=== PATIENT | female | born 1985 | race Caucasian/White ===

== ENCOUNTER 2019-07-22 12:05 | Emergency (ER) | payer OTHER ==
[~2019-07-22] VITALS: Ht 157.5 cm; Wt 79.4 kg
[~2019-07-22 12:05] MED LIST: ACYC400 PO; AMIT10; AMIT10 PO; Ativan0.5 MG PO; BENADRYL25 MG PO; Bactrim 400-801 EACH PO; Benztropine Mesy1 MG; CLON.1 PO; CLON.2 PO; CLON1 PO; Catapres0.1 MG PO; DIPH25 PO; ESOM20 PO; FAMO20 PO; Kristalose20 GM PO; LORA1 PO; MIRT15 PO; NAPR220 PO; OLAN5 PO; PARO20 PO; PARO30 PO; PAXIL40 MG PO; PRED20 PO; Paxil40 MG PO; Pepcid20 MG PO; Prednisone50 MG PO; Prozac40 MG PO; QUET100 PO; QUET200 PO; QUET300 PO; QUETIAPINE FUMA50 MG PO; RXTRAM50 PO; SULTRIDS PO; Seroquel Xr300 MG PO; TRAM50 PO
[2019-07-22] MEDS ORDERED: QUET300 PO (12:33)
[2019-07-22] MEDS ORDERED: PARO30 PO (12:33)
[2019-07-22] MEDS ORDERED: CLON.2 PO (12:43)
== END 2019-07-22 12:38 | disposition home or self-care (01) ==
LOC: ER 12:05
DX: F31.9 Bipolar disorder, unspecified (principal); Z76.0 Encounter for issue of repeat prescription; F41.0 Panic disorder [episodic paroxysmal anxiety]; Z79.899 Other long term (current) drug therapy; Z87.891 Personal history of nicotine dependence
CPT/HCPCS: 99281

== ENCOUNTER 2020-04-20 17:53 | Emergency (ER) | payer MEDICARE, OTHER ==
[~2020-04-20] VITALS: Ht 157.5 cm; Wt 83.9 kg
[2020-04-20 18:56] LABS: BASOPHILS ABSOLUTE AUTO 0.05 K/mm3 (0.00-0.23); BASOPHILS PERCENT AUTO 1 % (0-2); EOSINOPHILS ABSOLUTE AUTO 0.34 K/mm3 (0.00-0.68); EOSINOPHILS PERCENT AUTO 4 % (0-6); Hematocrit 39.8 % (33.0-51.0); Hemoglobin 13.5 g/dL (11.5-16.0); IMMATURE GRAN ABSOLUTE AUTO 0.01 K/mm3 (0.00-0.10); IMMATURE GRAN PERCENT AUTO 0 % (0-1); LYMPHOCYTES ABSOLUTE AUTO 2.44 K/mm3 (0.84-5.20); LYMPHOCYTES PERCENT AUTO 30 % (21-46); MONOCYTES ABSOLUTE AUTO 0.72 K/mm3 (0.16-1.47); MONOCYTES PERCENT AUTO 9 % (4-13); Mean Corpuscular HGB Conc 33.9 g/dL (31.5-36.5); Mean Corpuscular Volume 88 fL (80-100); Mean Platelet Volume 9.4 fL (9.1-12.4); NEUTROPHILS ABSOLUTE AUTO 4.72 K/mm3 (1.96-9.15); NEUTROPHILS PERCENT AUTO 57 % (41-73); Platelet Count 362 K/mm3 (150-400); RDW Coefficient Variation 13.3 % (11.7-14.2); RDW Standard Deviation 43.3 fL (35.1-46.3); White Blood Cell Count 8.28 K/mm3 (4.00-11.30)
[2020-04-20 19:10] LABS: International Normalized Ratio 0.91; Prothrombin Time Results 9.8 Sec (9.7-11.5)
[2020-04-20 19:18] LABS: Ethanol (Alcohol), Blood, Med <3 mg/dL; Salicylate <1.7 mg/dL (2.8-20.0)
[2020-04-20 19:28] LABS: Alanine Aminotransfer (ALT/SGP 27 U/L (12-78); Albumin, Blood 3.7 g/dL (3.4-5.0); Albumin/Globulin Ratio 0.9 (0.8-1.8); Alk Phos 73 U/L (50-136); Anion Gap 6 mmol/L (6-16); Aspartate Aminotrans (AST/SGOT 16 U/L (12-37); Bilirubin, Total 0.6 mg/dL (0.1-1.0); Blood Urea Nitrogen 12 mg/dL (8-24); Bun/Creatinine Ratio 19.9 (12.0-20.0); CO2, Blood 25 mmol/L (21-32); Calcium, Blood 9.3 mg/dL (8.5-10.1); Chloride, Blood 105 mmol/L (98-108); Globulin, Blood 4.2 g/dL (2.2-4.0); Glomerular Filtration Rate >60 (60-); Glucose, Blood 119 mg/dL (70-99); Potassium, Blood 3.5 mmol/L (3.5-5.5); Sodium, Blood 136 mmol/L (136-145); Total Protein, Blood 7.9 g/dL (6.4-8.2)
[2020-04-20 22:55] LABS: Bilirubin, Direct <0.1 mg/dL (0.0-0.3); Bilirubin, Indirect Unable to Calculate mg/dL (0.1-0.7)
== END 2020-04-20 22:28 | disposition left against medical advice (07) ==
LOC: ER 17:53
PROVIDERS: Student in an Organized Health Care Education/Training Program
DX: T39.1X1A Poisoning by 4-Aminophenol derivatives, accidental (unintentional), initial encounter (principal); T78.40XA Allergy, unspecified, initial encounter
CPT/HCPCS: 36415; 80053; 82248; 85025; 85610; 99283; A9270; G0480; J7512

== ENCOUNTER 2020-04-21 12:38 | Emergency (ER) | payer MEDICARE, OTHER ==
[~2020-04-21] VITALS: Ht 157.5 cm; Wt 81.7 kg
[2020-04-21 13:12] LABS: BASOPHILS ABSOLUTE AUTO 0.04 K/mm3 (0.00-0.23); BASOPHILS PERCENT AUTO 0 % (0-2); EOSINOPHILS ABSOLUTE AUTO 0.17 K/mm3 (0.00-0.68); EOSINOPHILS PERCENT AUTO 1 % (0-6); Hematocrit 36.3 % (33.0-51.0); Hemoglobin 12.6 g/dL (11.5-16.0); IMMATURE GRAN ABSOLUTE AUTO 0.05 K/mm3 (0.00-0.10); IMMATURE GRAN PERCENT AUTO 0 % (0-1); LYMPHOCYTES ABSOLUTE AUTO 3.11 K/mm3 (0.84-5.20); LYMPHOCYTES PERCENT AUTO 21 % (21-46); MONOCYTES ABSOLUTE AUTO 1.37 K/mm3 (0.16-1.47); MONOCYTES PERCENT AUTO 9 % (4-13); Mean Corpuscular HGB 30.2 pg (26.0-34.0); Mean Corpuscular HGB Conc 34.7 g/dL (31.5-36.5); Mean Corpuscular Volume 87 fL (80-100); Mean Platelet Volume 9.2 fL (9.1-12.4); NEUTROPHILS ABSOLUTE AUTO 10.41 K/mm3 (1.96-9.15); NEUTROPHILS PERCENT AUTO 69 % (41-73); Platelet Count 366 K/mm3 (150-400); RDW Coefficient Variation 13.5 % (11.7-14.2); RDW Standard Deviation 42.1 fL (35.1-46.3); Red Blood Cell Count 4.17 M/mm3 (3.80-5.20); White Blood Cell Count 15.15 K/mm3 (4.00-11.30)
[2020-04-21 13:27] LABS: Alanine Aminotransfer (ALT/SGP 27 U/L (12-78); Albumin, Blood 3.5 g/dL (3.4-5.0); Albumin/Globulin Ratio 0.8 (0.8-1.8); Alk Phos 66 U/L (50-136); Anion Gap 6 mmol/L (6-16); Aspartate Aminotrans (AST/SGOT 16 U/L (12-37); Bilirubin, Total 0.6 mg/dL (0.1-1.0); Blood Urea Nitrogen 8 mg/dL (8-24); Bun/Creatinine Ratio 16.3 (12.0-20.0); CO2, Blood 27 mmol/L (21-32); Calcium, Blood 8.9 mg/dL (8.5-10.1); Chloride, Blood 104 mmol/L (98-108); Creatinine, Blood 0.49 mg/dL (0.40-1.00); Globulin, Blood 4.2 g/dL (2.2-4.0); Glomerular Filtration Rate >60 (60-); Glucose, Blood 90 mg/dL (70-99); Potassium, Blood 3.9 mmol/L (3.5-5.5); Sodium, Blood 137 mmol/L (136-145); Total Protein, Blood 7.7 g/dL (6.4-8.2)
[2020-04-21 13:28] LABS: Acetaminophen, Random <2.0 ug/mL (10.0-30.0); International Normalized Ratio 0.94; Prothrombin Time Results 10.1 Sec (9.7-11.5)
== END 2020-04-21 14:25 | disposition home or self-care (01) ==
LOC: ER 12:38
PROVIDERS: Physician Assistant
DX: L23.9 Allergic contact dermatitis, unspecified cause (principal); K21.9 Gastro-esophageal reflux disease without esophagitis; Z88.0 Allergy status to penicillin; Z79.899 Other long term (current) drug therapy
CPT/HCPCS: 36415; 80053; 85025; 85610; 85730; 99284; A9270; G0480

== ENCOUNTER → 2022-04-30 | Outpatient (CLI) | payer MEDICARE, OTHER ==
[2022-05-01 09:08] LABS: Candida species (DNA Probe) Negative (NEGATIVE); G. vaginalis (DNA Probe) Negative (NEGATIVE); T. vaginalis (DNA Probe) Negative (NEGATIVE)
[2022-05-02 08:12] LABS: HIV AB/P24 AG SCREEN Non Reactive (Non Reactive)
== END | disposition home or self-care (01) ==
LOC: LAB 17:58 → LAB SHORT 17:58
PROVIDERS: Physician Assistant Surgical
DX: Z20.9 Contact with and (suspected) exposure to unspecified communicable disease (principal)
CPT/HCPCS: 86592; 87389; 87480; 87510; 87660

== ENCOUNTER 2023-06-16 19:28 | Emergency (ER) | payer MEDICARE, OTHER ==
[~2023-06-16] VITALS: Ht 154.9 cm; Wt 77.1 kg
[2023-06-16 19:44] VITALS: BP 140/92
[2023-06-16] MEDS ORDERED: QUEtiapine Fumarate 300 MG Tab PO ONE (19:55)
[2023-06-16] MEDS ORDERED: PARoxetine HCl 20 MG Tab PO ONE (19:55)
[2023-06-17] MEDS ORDERED: QUET300 PO (15:44)
[2023-06-17] MEDS ORDERED: PARO30 PO (15:44)
== END 2023-06-17 20:03 | disposition home or self-care (01) ==
LOC: ER 19:28
DX: F41.9 Anxiety disorder, unspecified (principal); F17.200 Nicotine dependence, unspecified, uncomplicated; Z88.0 Allergy status to penicillin; Z79.899 Other long term (current) drug therapy
CPT/HCPCS: A9270

== ENCOUNTER 2024-09-01 16:46 | Emergency (ER) | payer MEDICARE, OTHER ==
[~2024-09-01] VITALS: Ht 154.9 cm; Wt 77.1 kg
[2024-09-01 16:59] VITALS: BP 132/94
[2024-09-01] MEDS ORDERED: CATAPRES0.2 M1 PO (17:06)
[2024-09-01] MEDS ORDERED: QUET300 PO (17:06)
[2024-09-01] MEDS ORDERED: PARO20 PO (17:06)
== END 2024-09-01 17:16 | disposition home or self-care (01) ==
LOC: ER 16:46
DX: G47.00 Insomnia, unspecified (principal); F41.9 Anxiety disorder, unspecified; Z76.0 Encounter for issue of repeat prescription; Z88.0 Allergy status to penicillin; Z79.899 Other long term (current) drug therapy; F17.200 Nicotine dependence, unspecified, uncomplicated
CPT/HCPCS: 99281

== ENCOUNTER 2024-09-15 15:21 | Emergency (ER) | payer MEDICARE, OTHER ==
[~2024-09-15] VITALS: Ht 160 cm; Wt 72.6 kg
[~2024-09-15 15:21] MED LIST changes: +CATAPRES0.2 M1 PO
[2024-09-15 15:26] VITALS: BP 158/86
[2024-09-15] MEDS ORDERED: QUET300 PO (19:23)
[2024-09-15] MEDS ORDERED: PARO20 PO (19:23)
== END 2024-09-15 18:30 | disposition home or self-care (01) ==
LOC: ER 15:21
DX: F41.0 Panic disorder [episodic paroxysmal anxiety] (principal); F31.9 Bipolar disorder, unspecified; F20.9 Schizophrenia, unspecified; G47.9 Sleep disorder, unspecified; F17.200 Nicotine dependence, unspecified, uncomplicated; Z88.0 Allergy status to penicillin; Z79.899 Other long term (current) drug therapy; Z59.89 Other problems related to housing and economic circumstances
CPT/HCPCS: A9270